=== PATIENT | male | born 1990 | race Two or more races ===

== ENCOUNTER 2022-05-31 02:31 | Emergency (ER) | payer SELFPAY ==
[~2022-05-31] VITALS: Ht 175.3 cm; Wt 84.0 kg
[2022-05-31 07:46] VITALS: BP 127/85
== END 2022-05-31 08:16 | disposition left against medical advice (07) ==
LOC: ER 02:31
DX: K08.89 Other specified disorders of teeth and supporting structures (principal); Z53.21 Procedure and treatment not carried out due to patient leaving prior to being seen by health care provider